=== PATIENT | male | born 2000 | race Caucasian/White ===

== ENCOUNTER 2025-05-06 17:59 | Inpatient (IN) | payer SELFPAY ==
[2025-05-06 18:24] VITALS: BP 113/57; PULSE 56; RESP 18; TEMP 36.4; O2SAT 96; BMI 36.7
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
--- OUTSIDE RECORDS SUMMARY | 2025-05-06 20:23 | XMS_ITS | Clinical Summary ---
Author Organization [facility] Address [address] [id number] Care Team Providers Care Vice President Safety Name Role Phone Crista Rivas NP Primary Care Provider [phone] Allergies No known active allergies Medications * This document contains information received from the source organization and may not represent a complete record from that organization. No known medications Active Problems Problem Noted Date Diagnosed Date Scoliosis 11/27/2013 Family History Medical History Relation Name Comments Other Father Family History of arthritis /Family History of hypoglycemia /Family History of spinal stenosis Other Mother Family History of hypoglycemia /Family History of anemia Relation Name Status Comments Father Mother Social History Tobacco Use Types Packs/Day Years Used Date Smoking Tobacco: Never Smokeless Tobacco: Never Comments:: Alcohol Use Standard Drinks/Week Comments Not Currently 0 (1 standard drink = 0.6 oz pur e alcohol) Sex and Gender Information Value Date Recorded Sex Assigned at Male 08/22/2024 8:15 AM EST Legal Sex Male 11:18 PM EDT Gender Identity Not on file Sexual Orientation Not on file Last Filed Vital Signs Vital Sign Reading Time Taken Comments Blood Pressure 108/70 05/06/2025 4:04 PM EDT Pulse 68 05/06/2025 4:04 PM EDT Temperature 36.6 C (97.9 F) 05/06/2025 4:04 PM EDT Respiratory Rate 16 05/06/2025 4:04 PM EDT Oxygen Saturation 99% 05/06/2025 4:04 PM EDT Inhaled Oxygen Concentration - - Weight 142.4 kg (314 lb) 10/15/2014 11:26 AM EDT Height 178.3 cm (5' 10.2 ) 10/15/2014 11:26 AM E DT Body Mass Index 44.8 10/15/2014 11:26 AM EDT Plan of Treatment Health Maintenance Due Date Last Done Comments HIV Screening 2000 Hepatitis C Screening 2000 Hepatitis B Vaccines (3 of 3 - 3-dose series) 05/10/2001 03/15/2001, 2000, 2000 Varicella Vaccines (2 of 2 - 2-dose childhood series) 2004 05/18/2001 Alcohol/Substance Use Screening 07/10/2024 Depression Screening and Follow-Up 07/10/2024 Oral Health Screening 07/10/2024 COVID-19 Vaccine ( - season) 2025 Influenza Vaccine (#1) 2025 9, 08/08/2018, 06/14/2017, Additional history exists DTaP,Tdap,and Td Vaccines (8 - Td or Tdap) 04/07/2030 04/07/2020, 04/25/2013, 05/17/2005, Additional history exists RSV Vaccine (60+ years old and patients) (1 - 1-dose 75+ series) 2075 Pneumococcal Vaccine: Pediatric (0-5 Years) and At-Risk Patients (6-50 Years) Aged Out 2000, 2000 No longer eligibl e based on patient's age to complete this topic HPV Vaccines Completed 09/01/2016, 04/09, 11/04/2015 Procedures * Due to [place] state law, this organization might not be sharing negative HIV tests. Procedure Name Priority Date/Time Associated Diagnosis Comments CT HEAD WO CONTRAST STAT 05/04/2025 1 1:59 PM EDT ECG 12-LEAD STAT 05/04/2025 10:34 PM EDT DRUGS OF ABUSE SCREEN, URINE (AMPH,HERSON,OMID,BUP,C OC,FENT,AMRIT,METH,OPS ,OXY) STAT 05/04/2025 10:22 PM EDT TSH REFLEX FREE T4 STAT 05/04/2025 10 :22 PM EDT UA/CULTURE REFLEX Routine 05/04/2025 10: 22 PM EDT RAPID COVID-19 RNA FOR SURVEILLANCE (ED ONLY) STAT 05/04/2025 10:22 PM EDT URINALYSIS W/REFLEX TO MICROSCOPIC & CULTURE Routine 05/04/2025 10:22 PM EDT BASIC METABOLIC PANEL STAT 05/04/2025 10:22 PM EDT CBC AUTO DIFFERENTIAL STAT 05/04/2025 10:22 PM EDT URINE CULTURE, ROUTINE Routine 05/04/2025 10:22 PM EDT from Last 3 Months Results * Due to [place] state law, this organization might not be sharing negative HIV tests. * CT Head WO Contrast (05/04/2025 11:59 PM EDT) Anatomical Region Laterality Modality Head and Neck Computed Tomogra phy 05/05/2025 12:0 0 AM EDT Impressions 05/05/2025 12:19 AM EDT No acute intracranial abnormality. If this radiology report contains a blank impression section, it is an incomplete radiology report. Please contact the interpreting radiologist or applicable radiology division as soon as possible to obtain the completed interpretation. Workstation ID: [id number] Narrative 05/05/2025 12:19 AM EDT COMPARISON: None. FINDINGS: There is no shift of midline structures. The ventricles, cisterns and other CSF containing spaces are normal in size, shape and position. The brain parenchyma demonstrates normal contour and density with preservation of the mcclellan-white differentiation. There are no focal mass lesions or abnormal intra or extra- axial fluid collections. The paranasal sinuses and mastoid air cells are well developed and well-aerated without focal mass lesion or air-fluid levels. Resulting Agency Comment [id number] Procedure Note Santy Beck MD - 05/05/2025 COMPARISON: None. FINDINGS: There is no shift of midline structures. The ventricles, cisterns andother CSF containing spaces are normal in size, shape and position. Thebrain parenchyma demonstrates normal contour and density with preservationof the mcclellan-white differentiation. There are no focal mass lesions orabnormal intra or extra-axial fluid collections. The paranasal sinuses and mastoid air cells are well developed andwell-aerated without focal mass lesion or air-fluid levels. IMPRESSION: No acute intracranial abnormality. If this radiology report contains a blank impression section, it is anincomplete radiology report. Please contact the interpreting radiologistor applicable radiology division as soon as possible to obtain thecompleted interpretation. Workstation ID: [id number] Saad Redman MD IMG CT PROCEDURES Final Result * ECG 12 lead (05/04/2025 10:34 PM EDT) Ventricular Rate EKG 61 BPM MUSE EKG Atrial Rate 61 BPM MUSE EKG CO Interval 134 ms MUSE EKG QRS Interval 88 ms MUSE EKG QT Interval 418 ms MUSE EKG QTC Interval 420 ms MUSE EKG P [place] 5 degrees MUSE EKG R [place] 13 degrees MUSE EKG T Wave [place] 26 degrees MUSE EKG 05/04/2025 10:3 4 PM EDT 05/05/2025 8:32 AM EDT Impressions MUSE EKG - 05/05/2025 8:32 AM EDT Normal sinus rhythm Artifact No previous ECGs available Confirmed by Radhika Harding ([id number]) on 05/05/2025 8:32:16 AM Narrative Procedure Note Radhika Harding DO - 05/05/2025 IMPRESSION: Normal sinus rhythm Artifact No previous ECGs available Confirmed by Radhika Harding ([id number]) on 05/05/2025 8:32:16 AM Saad Redman MD ECG ORDERABLES Final Result MUSE EKG * Drugs of Abuse Screen, Urine (05/04/2025 10:22 PM EDT) Amphetamine Screen, Urine Negative Negative 05/05/2025 12:[facility]: Detection limit of 1000 ng/mL of d-Methamphetamine. Drug results are to be used only for medical purposes. Unconfirmed screening results must not be used for non-medical purposes. Barbiturate Screen, Urine Negative Negative 05/05/2025 12:36 AM EDT [facility] Comment: Detection limit of 200 ng/mL of Secobarbital. Drug results are to be used only for medical purposes. Unconfirmed screening results must not be used for non-medical purposes. Benzodiazepine Screen, Urine Negative Negative 05/05/2025 12:36 AM EDT [facility] Comment: Detection limit of 200 ng/mL of Nordiazepam. Drug results are to be used only for medical purposes. Unconfirmed screening results must not be used for non-medical purposes. Buprenorphine Screen, Urine Negative Negative 05/05/2025 12:36 AM T [facility] Comment: Detection limit of 10 ng/mL of norbuprenorphine. Drug results are to be used only for medical purposes. Unconfirmed screening results must not be used for non-medical purposes. Cocaine Metabolite Screen, Urine Negative Negative 05/05/2025 12:36 AM T [facility] Comment: Detection limit of 300 ng/mL of Benzoylecgonine. Drug results are to be used only for medical purposes. Unconfirmed screening results must not be used for non-medical purposes. Marijuana Screen, Urine Negative Negative 05/05/2025 12:36 AM EDT [facility] Comment: Detection limit of 50 ng/mL of 35-Ptv-mpywt-3-JJY-7-carboxylic acid. Drug results are to be used only for medical purposes. Unconfirmed screening results must not be used for non-medical purposes. Methadone Metabolite Screen, Urine Negative Negative 05/05/2025 12:36 AM T [facility] Comment: Detection limit of 300 ng/mL of Methadone. Drug results are to be used only for medical purposes. Unconfirmed screening results must not be used for non-medical purposes. Oxycodone Screen, Urine Negative Negative 05/05/2025 12:36 AM EDT [facility] Comment: Detection limit of 100 ng/mL of Oxycodone. Drug results are to be used only for medical purposes. Unconfirmed screening results must not be used for non-medical purposes. Opiate Screen, Urine Negative Negative 05/05/2025 12:36 AM EDT [facility] Comment: Detection limit of 300 ng/mL of Morphine. Drug results are to be used only for medical purposes. Unconfirmed screening results must not be used for non-medical purposes. Fentanyl Screen, Urine Negative Negative 05/05/2025 12:36 AM EDT [facility] Comment: Detection limit of 5 ng/mL of norfentanyl. Drug results are to be used only for medical purposes. Unconfirmed screening results must not be used for non-medical purposes. Urine Urine specimen collection, clean catch / Unknown Non-Blood Collection / Unknown 05/04/2025 10:22 PM EDT 05/04/2025 10:28 PM EDT us Saad Redman MD LAB URINE ORDERABLES Final Resul t [facility] [address] [place] [address], * Rapid COVID-19 for Surveillance - Psych/Admission (05/04/2025 10:22 PM EDT) [facility] PCR, SARS CoV-2 RNA Not Detected Not Detected CEPHEID GENEXPERT 05/04/2025 11:04 PM EDT [facility] Comment:A Not Detected (Nega tive) test result is indicative of the absence of SARS-CoV-2 RNA at the level of LoD (Limit of Detection). A negative result does not rule out the possibility of COVID-19 and should not be used as the sole basis for treatment or patient management decisions. If COVID-19 is still suspected, based on exposure history together with other clinical findings, re-testing should be considered. Swab Specimen from nasopharyngeal structure / Unknown Non-Blood Collection / Unknown 05/04/2025 10:22 PM EDT 05/04/2025 10:28 PM EDT Narrative [facility] - 05/04/2025 11:04 PM EDT This test was developed, validated and its performance characteristics determined by [facility]. This test has not been cleared or approved by the U.S. Food and Drug Administration (FDA). FDA Policy for Diagnostic Tests for Coronavirus Disease-2019 during the Public Health Emergency issued September 23, 2019, is followed. us Saad Redman MD LAB BODY FLUIDS AND STOOLS ORDER DESTINY Final Result [facility] [address] [place] [address], [place] * (ABNORMAL) Urinalysis W/Reflex to Microscopic & Culture (05/04/2025 10:22 PM EDT) Color, Urine Light Yellow Colorless, Light Yellow, Yellow, Dark Yellow 05/04/2025 10:43 PM EDT [facility] Clarity, Urine Clear Clear 05/04/2025 10:43 PM EDT [facility] Specific [place], Urine 1.005 <1.030 05/04/2025 10:43 PM EDT [facility] pH, Urine 6.5 5.0 - 8.0 05/04/2025 10:43 PM EDT [facility] Protein, Urine Negative Negative 05/04/2025 10:43 PM EDT [facility] Glucose, Urine Negative Negative 05/04/2025 10:43 PM EDT [facility] Ketones, Urine Negative Negative 05/04/2025 10:43 PM EDT [facility] Bilirubin, Urine Negative Negative 05/04/2025 10:43 PM EDT [facility] Blood, Urine Negative Negative 05/04/2025 10:43 PM EDT [facility] Nitrite, Urine Negative Negative 05/04/2025 10:43 PM EDT [facility] Urobilinogen, Urine Normal Normal 05/04/2025 10:43 PM EDT [facility] Leukocyte Esterase, Urine Trace(A) Negative 05/04/2025 10:43 PM EDT [facility] WBC, Urine 2 0 - 2 /HPF 05/04/2025 10:43 PM EDT [facility] RBC, Urine 1 0 - 2 /HPF 05/04/2025 10:43 PM EDT [facility] Hyaline Casts, Urine 0 0 - 2 /LPF 05/04/2025 10:43 PM EDT [facility] Squamous Epithelial Cells, Urine <1 /HPF 05/04/2025 10:43 PM EDT [facility] Bacteria, Urine None Seen None /HPF /HPF 05/04/2025 10:43 PM EDT [facility] Urine Urine specimen collection, clean catch / Unknown Non-Blood Collection / Unknown 05/04/2025 10:22 PM EDT 05/04/2025 10:28 PM EDT [facility] - 05/04/2025 10:43 PM EDT Some urinalysis results will not meet the criteria for reflex urine culture although certain urine values may be abnormal. Additional testing can be ordered by the provider if clinically warranted. us Saad Redman MD LAB URINE ORDERABLES Final Resul t Performing Organization Address City/[facility]/ZIP Co de Phone Number [facility] [address] [place] [address], [place] * TSH Reflex Free T4 (05/04/2025 10:22 PM EDT) TSH 0.630 0.280 - 3.890 uIU/mL 05/04/2025 11:09 PM EDT [facility] Blood Structure of peripheral vein / Unknown Venipuncture / Unknown 05/04/2025 10:22 PM EDT 05/04/2025 10:30 PM EDT us Saad Redman MD LAB BLOOD ORDERABLES Final Resul t Performing Organization Address [facility]/ZIP Co de Phone Number [facility] [address] [place] [address], [place] * (ABNORMAL) CBC Auto Differential (05/04/2025 10:22 PM EDT) WBC 8.8 3.8 - 10.8 10*3/uL 05/04/2025 10:53 PM EDT [facility] RBC 4.52 4.20 - 5.80 10*6/uL 05/04/2025 10:53 PM EDT [facility] Hemoglobin 13.6 13.2 - 17.1 g/dL 05/04/2025 10:53 PM EDT [facility] Hematocrit 38.4(L) 38.5 - 50.0 % 05/04/2025 10:53 PM EDT [facility] MCV 85.0 80.0 - 100.0 fL 05/04/2025 10:53 PM EDT [facility] MCH 30.1 27.0 - 33.0 pg 05/04/2025 10:53 PM EDT [facility] MCHC 35.4 32.0 - 36.0 g/dL 05/04/2025 10:53 PM EDT [facility] RDW 12.3 11.0 - 15.0 % 05/04/2025 10:53 PM EDT [facility] Platelets 258 140 - 400 10*3/uL 05/04/2025 10:53 PM EDT [facility] MPV 10.6 7.5 - 12.5 fL 05/04/2025 10:53 PM EDT [facility] Neutrophil % 72.1 % 05/04/2025 10:53 PM EDT [facility] Immature Grans % 0.3 0.0 - 0.9 % 05/04/2025 10:53 PM EDT [facility] Lymphocyte % 21.7 % 05/04/2025 10:53 PM EDT [facility] Monocyte % 5.1 % 05/04/2025 10:53 PM EDT [facility] Eosinophil % 0.3 % 05/04/2025 10:53 PM EDT [facility] Basophil % 0.5 % 05/04/2025 10:53 PM EDT [facility] Neutrophil # 6.31 1.50 - 7.80 10*3/uL 05/04/2025 10:53 PM EDT [facility] Immature Grans # 0.03 <=0.03 10*3/uL 05/04/2025 10:53 PM EDT [facility] Lymphocyte # 1.90 0.85 - 3.90 10*3/uL 05/04/2025 10:53 PM EDT [facility] Monocyte # 0.50 0.20 - 0.95 10*3/uL 05/04/2025 10:53 PM EDT [facility] Eosinophil # <0.03 0.02 - 0.50 10*3/uL 05/04/2025 10:53 PM EDT [facility] Basophil # <0.03 0.00 - 0.20 10*3/uL 05/04/2025 10:53 PM EDT [facility] nRBC % 0.0 /100 WBCs 05/04/2025 10:53 PM EDT [facility] nRBC # <0.01 <0.01 10*3/uL 05/04/2025 10:53 PM EDT [facility] Blood Structure of peripheral vein / Unknown Venipuncture / Unknown 05/04/2025 10:22 PM EDT 05/04/2025 10:30 PM EDT us Saad Redman MD LAB BLOOD ORDERABLES Final Resul t [facility] [address] [place] [address], * Urine Culture, Routine (05/04/2025 10:22 PM EDT) Urine Culture Workup No growth after 24 hours [facility] 05/06/2025 12:28 PM EDT [facility] Urine Urine specimen collection, clean catch / Unknown Non-Blood Collection / Unknown 05/04/2025 10:22 PM EDT 05/04/2025 10:43 PM EDT us Saad Redman MD LAB MICROBIOLOGY - GENERAL ORDER DESTINY Final Result [facility] [address] [place] [address], * BMP - Basic Metabolic Panel (05/04/2025 10:22 PM EDT) NA 140 135 - 145 mmol/L 05/04/2025 11:09 PM EDT [facility] K 4.6 3.5 - 5.3 mmol/L 05/04/2025 11:09 PM EDT [facility] Cl 105 97 - 110 mmol/L 05/04/2025 11:09 PM EDT [facility] CO2 25 22 - 32 mmol/L 05/04/2025 11:09 PM EDT [facility] BUN 9 7 - 23 mg/dL 05/04/2025 11:09 PM EDT [facility] Creatinine 1.03 0.60 - 1.30 mg/dL 05/04/2025 11:09 PM EDT [facility] Glucose 82 65 - 99 mg/dL 05/04/2025 11:09 PM EDT [facility] Calcium 9.3 8.6 - 10.5 mg/dL 05/04/2025 11:09 PM EDT [facility] Anion Gap 10 5 - 15 05/04/2025 11:09 PM EDT [facility] eGFR >90 >=60 mL/min/1. 73m2 05/04/2025 11:09 PM EDT [facility] Comment:The estimated glomer ular filtration rate (eGFR) is calculated using a new formula developed by the NKF-ASN task force to eliminate race-based correction factors. The new formula uses serum/plasma creatinine, age, and gender to determine eGFR. A value below 60mls/min might indicate kidney disease and will be flagged. For additional information, see Yanna et al, Am J Kidney Dis. 2021;79(2):268- 288, A Unifying Approach for GFR estimation: Recommendations of the NKF-ASN Task Force on Reassessing the Inclusion of Race in Diagnosing Kidney Disease . Blood Structure of peripheral vein / Unknown Venipuncture / Unknown 05/04/2025 10:22 PM EDT 05/04/2025 10:30 PM EDT us Saad Redman MD LAB BLOOD ORDERABLES Final Resul t [facility] [address] [address], from Last 3 Months Care Teams Vice President Safety Relationship Specialty Start Date End Date Crista Rivas NP [address] [place] [id number] PCP - General Family Medicine 08/22/24
--- OUTSIDE RECORDS SUMMARY | 2025-05-06 20:24 | XMS_ITS | Data Portability ---
Author Organization [facility] Address [address] [place] [address] Care Team Providers Care Non Morse Intercept Technician Name Role Phone BRUCE VILLARREAL Primary Care Provider TOÑO SALGADO OTHER Assessment No assessment recorded. Plan of Treatment Reminders Order Date Submit Date Provider Last Modified By Organization Details Last Modified Time Details Appointments None recorded. Lab None recorded. Referral None recorded. Procedures None recorded. Surgeries None recorded. Imaging None recorded. Medication Orders Flonase Allergy Relief 50 mcg/actuat ion nasal spray,susp ension 2018 019 INTERFACE [id number], [address] [place], [address], 9 18:53:46 Sudafed 12 Hour 120 mg tablet,ext ended release 2018 019 INTERFACE [id number], [address] [place], [address], 9 18:53:45 Sudafed 30 mg tablet 2018 019 Not available 9 08:55:17 ibuprofen 200 mg tablet 2018 019 Not available 9 08:55:17 prednisone 10 mg tablet 2016 017 [id number], [address] [place], [address], 9 08:33:44 sodium fluoride 0.2 % dental solution 2016 017 Not available 9 08:34:07 Mucinex DM 30 mg-600 mg tablet,ext ended release 12 hr 2016 017 Not available 9 08:34:11 ibuprofen 200 mg tablet 2016 017 Not available 9 08:34:02 Patient TargetsNo targets recorded. Patient Instructions Encounter Date Encounter Id Patient Instructions Last Modified By Organization Details Last Modified Time 08/17/2016 [id number] Mucinex DM 1 tab given in the office, cont q12 hr prn for lung congestion. Ibuprofen 400mg given in the office, cont q4 hr prn for pain. Increase rest and fluids, saline nasal sprays, salt H2O gargles for throat. Encouraged decrease marijuana use. f/u if sx's change, worsen or persist Not available 08/17/2016 11:04:41 Returned to class Not availabl e 08/17/2016 11:03:21 11/17/2016 [id number] Refrain from eat ing sticky foods such as gum or candy for the rest of today May eat and drink immediately following the application Varnish will remain on teeth till you brush tonight Recommended tooth paste for sensitive teeth, avoid trigger foods such as sugar and gum and disclose problem at next dental visit if sensivity persists Not available 11/17/2016 10:11:12 Dispostion: Retu rn to class. f/u prn Not available 11/17/2016 10:11:20 07/25/2018 [id number] Sudafed 60mg giv en in the office, cont q6 hr prn for cough. Ibuprofen 400mg given in the office, cont q6 hr prn for pain/fever. Increase rest and fluids, saline nasal sprays/netti pot, salt H2O gargles. f/u if sx's change, worsen or persist. Not available 07/25/2018 08:50:44 Returned to class Not availabl e 07/25/2018 08:49:47 06/24/2019 [id number] viral respirator y infection: care instructions [email or web address] Not available 06/24/2019 19:04:39 Please return to the clinic or follow up with your PCP if symptoms has not improve or worsens in 5-7 days. [email or web address] Not available 06/24/2019 19:04:23 You have had an Urgent Care Visit which is designed to address acute issues. It does not represent an exhaustive evaluation of your symptom complex, but is an attempt to treat and manage the most likely cause of your most pressing physical issues. If you are not improved in the time frame that we have discussed, please seek the advice of your PCP who is in a position to order further diagnostic testing and possible specialist consultation. If you are rapidly deteriorating despite the treatment recommendations please do not wait to see your PCP and do proceed to the closest ER where a comprehensive evaluation including consideration to lab and other diagnostic testing as well as consultation is more expeditiously accessible. If you were prescribed medications they have been directly submitted to your pharmacy on file. Please make sure you finish all your medications and if you develop major side effects related to them please do stop taking them and check with your PCP to see if you need to get an alternative medication. If labs or xray were ordered, we will call you with the results if there is any change to your plan of care. [email or web address] Not available 06/24/2019 19:04:39 Reason for Referral None Reported. Problems Name Problem SNOMED Code Status Onset Date Resolution Date Notes Provider Name and Address Organization Details Recorded Time Acute sinusitis 04979148 Active GEORGE Monroe, FINISH SPECIALIST [address] [place], [address] , [facility] 13:35:33 Problem Notes None recorded. Procedures Surgical History Date Name Laterality Status Provider Name and Address Organization Details Recorded Time 05/09/2016 GEORGE Segal, FINISH SPECIALIST [address] [place], [address], [facility] 05/09/2016 10:26:16 05/09/2016 WINDY Dobbins) GEORGE Almodovar, FINISH SPECIALIST [address] [place], [address], [facility] 05/09/2016 10:26:11 11/20/2015 GEORGE Segal, FINISH SPECIALIST [address] [facility], [address], [facility] 11/20/2015 10:59:31 11/20/2015 WINDY WebbAshley) completed GEORGE Monroe, FINISH SPECIALIST [address] [facility] [place], [address], [facility] 11/20/2015 10:59:31 06/11/2013 MYA completed GEORGE Monroe, [facility] [address] [facility] [place], [address], [facility] 06/11/2013 09:51:21 06/11/2013 WINDY WebbAshley) completed GEORGE Monroe, [facility] [address] [facility] [place], [address], [facility] 06/11/2013 09:51:21 Imaging Results None recorded. Procedure Notes None recorded. Medical Equipment None Reported. Allergies No known drug allergies Medications Name Sig Start Date Stop Date Status Note LastModified by Organization Details LastModified Time amoxicillin 500 mg capsule Take 1 capsule 3 times a day by oral route as directed for 10 days. 05/09 completed Not Available Not Available Not Available prednisone 10 mg tablet Take 5 tabs daily x 2 days, then 4 tabs daily x 2 days, then 3 tabs daily x 2 days, then 2 tabs daily x 2 days, then 1 tab daily x 2 days 07/25 completed Not Available Not Available Not Available azithromyci n 250 mg tablet 07/25 completed Not Available Not Available Not Available ibuprofen 800 mg tablet 07/25 completed Not Available Not Available Not Available ondansetron HCl 8 mg tablet active Not Available Not Available Not Available prednisone 20 mg tablet 05/09 completed Not Available Not Available Not Available clindamycin HCl 150 mg capsule 05/09 completed Not Available Not Available Not Available Adderall XR 30 mg capsule,ext ended release active Not Available Not Available Not Available diazepam 2 mg tablet 05/09 completed Not Available Not Available Not Available sodium fluoride 0.2 % dental solution Take 0.5 mL every 3 months by dental route as needed for 1 day. 07/25 completed Not Available Not Available Not Available ibuprofen 200 mg tablet Take 2 tablets every 6 hours by oral route as needed. 2018 active Not Available Not Available Not Avai lable lidocaine HCl 2 % mucosal solution 05/09 completed Not Available Not Available Not Available ipratropium bromide 42 mcg (0.06 %) nasal spray active Not Available Not Available Not Available ondansetron 4 mg disintegrat ing tablet 05/09 completed Not Available Not Available Not Available fluticasone propionate 50 mcg/actuati on nasal spray,suspe nsion [place] 1 spray twice a day by intranasa l route. active Not Available Not Available No t Available Sudafed 30 mg tablet Take 2 tablets every 6 hours by oral route as needed. 2018 active Not Available Not Available Not Avai lable Mucinex DM 30 mg-600 mg tablet,exte nded release 12 hr Take 1 tablet every 12 hours by oral route as needed. 07/25 completed Not Available Not Available Not Available 12 Hour Decongestan t ER 120 mg tablet,exte nded release Take 1 tablet every 12 hours by oral route for 5 days. active Not Available Not Available No t Available Vitals Date Recorded Body temperature Provider Name a nd Address Organization Details Last Updated DateTime 07/25/2018 97.6 [degF] Annemarie Guardado, GEORGE, FINISH SPECIALIST [address] [place], [address], [facility] 07/25/2018 08:35:45 Date Recorded Body temperature Provider Name a nd Address Organization Details Last Updated DateTime 08/17/2016 98.4 [degF] GEORGE Monroe, FINISH SPECIALIST [address] [place], [address], [facility] 08/17/2016 10:46:12 Date Recorded Body weight Body temperature Oxygen saturation Oxygen saturation in Arterial blood by Pulse oximetry Heart rate Provider Name and Address Organization Details Last Updated DateTime 7 209391. 19 g 97 [degF] 98 % 98 % 55 /min Alexandra Mcmanus RN [facility] 7 11:41:22 Date Recorded Body weight Body temperature Oxygen saturation Oxygen saturation in Arterial blood by Pulse oximetry Heart rate Systolic And Diastolic Provider Name and Address Organization Details Last Updated DateTime 9 980249. 18 g 97.7 [degF] 99 % 99 % 89 /min 130/86 mm[Hg] MERI Suarez [facility] 9 18:32:49 Social History Question Answer Notes LastModified by Organizat ion Details LastModified Time Tobacco Smoking Status Current Every Day Smoker Juuls one pod per day GEORGE Monroe, FINISH SPECIALIST [address] [place], [address], [facility] 07/25/2018 08:43:15 Alcohol Use Drinks Alcohol Socially Sporadic Use Information not available 11/20/2015 Illicit Drugs Yes Information not available 11/20/2015 What Was The Date Of Your Most Recent Tobacco Screening? 07/25/2018 Information not available 01/31/2019 Are You Sexually Active? No Information not available 11/20/2015 Sex: Unknown Functional Status None recorded. Mental Status None recorded. Family History Nothing Reported. Medical History Condition Response bladder / kidney infection(s) N asthma N glaucoma N use of alcohol or drugs? N ADD N pneumonia N nasal allergies N frequent headaches/migraines N problems with eyes/vision N diabetes N heart problems, murmurs N problems with ears/hearing N bronchitis N frequent abdominal pain N serious illness or medical conditions N frequent ear infections N ADHD N other N chickenpox N anxiety disorder N thyroid disease or other endocrine probl ems N constipation N cancer N arthritis N hospitalizations N depression N PTSD N anemia or bleeding problems N anesthesia allergy/complications N serious injuries or accidents N chronic or recurrent skin problems (acne /eczema) N convulsions or other neurological proble ms N blood transfusion(s) N Past Encounters Encounter ID Performer Location Encounter Start Date Encounter Closed Date Diagnosis/Indication Diagnosis SNOMED-CT Code Diagnosis ICD10 Code Diagnosis IMO Codes Diagnosis Note [id number] GEORGE Monroe, FINISH SPECIALIST [address] [address] 06/11/2013 09:45:20 06/11/2013 10:23:33 Dental fluoride treatment 32911969 Flouride varnish applied to surface area of all teeth. Patient tolerated applicatio n well. Instructed to not brush teeth until tomorow morning.Wr itten instructio ns given to student for their parent [id number] GEORGE Monroe, [address] [address] 09/11/2013 13:43:13 09/12/2013 10:52:26 Dental fluoride treatment 60319687 Flouride varnish applied to surface area of all teeth. Patient tolerated applicatio n well. Instructio ns reviewed with student [id number] GEORGE Monroe, [address] [address] 12/16/2013 09:40:42 12/16/2013 09:48:06 Dental fluoride treatment 94665142 Flouride varnish applied to surface area of all teeth. Patient tolerated applicatio n well. Instructio ns reviewed with student [id number] GEORGE Monroe, [address] [address] 11/20/2015 10:56:40 11/20/2015 13:36:18 Acute sinusitis 11491210 J01.10 Amox 500mg tid x 10 days, med use and side effects reviewed. Increase rest and fluids, saline nasal sprays, sudafed 60mg q6 hr prn for congestion , motrin 400mg q6 hr prn for pain. School nurse spoke with Dad on the phone re: exam findings and plan of care. Dismissed home, f/u if no improvemen t. [id number] GEORGE Monroe, [address] [address] 05/09/2016 09:04:25 05/09/2016 10:28:57 Dental fluoride treatment 67573632 Z91.89 Fluoride varnish instructio ns reviewed with student. Flouride varnish applied to surface area of all teeth. Patient tolerated applicatio n well. [id number] GEORGE Monroe, [address] [address] 08/12/2016 08:59:12 08/12/2016 09:06:20 Dental fluoride treatment 01512158 Z91.89 Fluoride varnish instructio ns reviwed with student. Flouride varnish applied to surface area of all teeth. Patient tolerated applicatio n well. [id number] GEORGE Monroe, [address] [address] 08/17/2016 10:43:31 08/17/2016 11:06:08 Upper respiratory infection 81999989 J06.9 [id number] GEORGE Monroe, [address] [address] 11/17/2016 10:00:54 11/17/2016 10:13:13 Dental fluoride treatment 19459402 Z91.89 Fluoride varnish instructio ns reviewed with student. Flouride varnish applied to surface area of all teeth. Patient tolerated applicatio n well. [id number] Mohini House PA-C [facility] [address] [place] [address] 04/18/2017 11:36:45 04/18/2017 12:20:03 Contact dermatitis due to plants, except food 59954648 L25.5 Recent exposure to poison barbara. Will treat with medication as below. Recommend pt washes all exposed clothing and sheets in hot soapy water. Pt to avoid scratching area to prevent developmen t of secondary bacterial infection. Pt to follow-up in 3-5 days if symptoms are not improving or have worsened. [id number] GEORGE Monroe, [address] [address] 07/25/2018 08:31:09 07/25/2018 08:54:07 Nasopharyngitis 42550342 J00 [id number] Moses Regan NP, Jadon [facility] [address] [place] [address] 06/24/2019 18:22:16 06/24/2019 18:48:36 Viral respiratory infection 913039689 J06.9 Patient is a 19 y.o. male who presented here today with sinus congestion s and ear pain for the past 2 days. ON exam, no sinus tenderness or pressure noted, LS clear. Throat and TMs WNL His symptoms is more likely viral in etiology. Discussed treatment below. Also advised to do the following home remedies to hasten its recovery. - Drink lots of fluids, whatever you like except for alcoholic beverages. - Run a cool-mist humidifier in your room at night. - For sore throat, gargle warm salt water. - Get extra rest and do not over-exert yourself. -Return to see your doctor if not improving in 5-7 days. Health Concerns Section Related Observation LastModified by Organization Detai ls LastModified Time None Recorded Concern Status LastModified by Organization Details LastModified Time None Recorded Advance Directives Directive None Recorded Payers Insurance Date Sequence Insurance Name Policy Number Policy Hunt Covered Member ID Hunt Member ID Guarantor Name 09/06/2024 1 [place] : [facility] Dale Ji [id number] Dale Ji 09/06/2024 1 [facility] [employer] - TO[employer] (MEDICAID HMO) [id number] Dale Ji [id number] Dale Ji Notes Date Note Type Note Provider Name and Address Organization Details Recorded Time 7 text/html Upper Respiratory SymptomsReported by Patientupper respiratory symptomsFor quality, patient reportsproductive cough. For associated symptoms, patient reportssore throatbut reportsno feverandno nausea. For location, patient reportschestandthroat. For severity, patient reportsmoderate. For context, patient reportssick contact (classmates)andsmoker (marijuana socially). For modifying factors, patient reportsotc medication (ibuprofen yesterday with good effect). For duration, (3 days). GEORGE Monroe, CARMEN [address] [place], [address], [facility] 08/17/2016 11:06:03 7 text/html Generic HPI TemplateReported by PatientHPIFor location, (here for fluoride varnish). For quality, (teeth in good repair). For context, (sees a dentist for regular cleanings. has had varnish before. denies any problems with previous fluoride application). For associated symptoms, (tooth sensitivity when eating hard candy and sugar in left upper molar area).Fluoride consent by Mom on [facility] enrollment form GEORGE Monroe, FINISH SPECIALIST [address] [facility] [place] [address], [facility] 11/17/2016 10:12:25 7 text/html RashReported by PatientHPIFor quality, patient reportsitchy,red, andmultiple. For location, patient reportsarms. For severity, patient reportsmoderate. For duration, patient reportshas noted for <1 week. For onset/timing, patient reportsabrupt onset. For context, patient reportsno new detergents or skin productsandno one else with similar rash. For aggravating factors, patient reportsnothing makes it worse. For associated symptoms, patient reportsno fever,no cold symptoms,no nausea,no vomiting,no diarrhea, andno urinary symptoms.ROS as noted in the HPI pt presents today with poison barbara or poison oak on his left arm and side. this started monday night and is very itchy. CS Mickey Sun III, MD [address] [place], [address], [facility] 04/30/2017 13:54:17 9 text/html Upper Respiratory SymptomsReported by Patientupper respiratory symptomsFor quality, patient reportshurts to swallow(stuffy/runny nose, post nasal drip). For associated symptoms, patient reportsnauseabut reportsno fever. For location, patient reportsheadandthroat. For severity, patient reportspain level 3/10. For modifying factors, patient reportsotc medication (tylenol with minimal relief). For duration, (2 - 3 days). Annemarie Guardado, MSN, FINISH SPECIALIST [address] [place], [address], [facility] 07/25/2018 08:54:02 9 text/html Sinusitis/AllergyReported by PatientHPIFor associated symptoms, patient reportsnasal discharge from both nostrils,headache forehead,facial pain bilaterally,sinus pain forehead,nasal discharge,nasal passage blockage bilaterally, andpain behind the eyes both. For quality, patient reportscongested. For severity, patient reportsinterference with workandfrequent breathing through the mouth. For context, patient reportsrecent upper respiratory infection. For location, patient reportsmaxillaryandfrontal . For onset/timing, patient reportsinitially started 2days ago. For aggravating factors, patient reportsworse with certain sleeping positions. 19 y/o male presents today c/o stuffy nose, headache, fever and ear ache and sinus pressure. Mickey Sun III, MD [address] [place] [address], [address], [facility] 06/24/2019 19:09:09
[2025-05-07 08:00] VITALS: BP 121/57; PULSE 76; RESP 16; TEMP 36.4; O2SAT 97
--- NOTE | 2025-05-07 08:38 | HO.PM.IMCN ---
History of Present Illness Data of Consult Service Date: 05/07/25 Primary Care Provider: None Physician HPI Reason for consult: Medical consult 25-year-old male with past medical history of PTSD, auditory hallucinations and paranoid delusions presented to [place] ED on a section 12 after called the police from a gas station bathroom with auditory hallucinations. Patient has been taking Xanax Suboxone and Adderall that he is obtaining from his family members in purchasing from the street. Patient also notably per history has significant trauma history. He had a CT head with no acute abnormalities. EKG within normal limits. Notably his Tox screen negative. Electrolytes without imbalances or evidence of kidney or liver impairment. TSH within normal limits. WBC without anemia or leukocytosis. Urine without infection. On exam he denies any acute concerns, calm and cooperative. Review of Systems Review of Systems: Denies any shortness of breath, chest pain, palpitations, dizziness, lightheadedness, headaches, dysuria, abdominal pain or discomfort, nausea, vomiting or diarrhea. Denies chills, body aches, muscle aches, fatigue or weight loss. PMFSH Social History Household Members: Family Housing: House Do you presently have visiting nurse or other home services: No Patient Tobacco Use Status: Refuse Tobacco use screen Currently Displaying Signs/Symptoms of Drug Intoxication Withdrawal: No Advance Directives: No Advance Directives Information Provided: No Do you have thoughts of harming others: None Do you have a plan to hurt others: No Plan Nutrition Risks: No Nutritional Risk Poor oral hygiene: No Meds Allergies Allergy/AdvReac Type Severity Reaction Status Date / Time No Known Allergies Allergy Verified 05/06/25 18:13 Active Medications: Current Medications Acetaminophen (Acetaminophen 325 Mg Tablet) 650 mg PO Q6H PRN PRN Reason: Headache/Pain, Scale 1-10 Al Hydroxide/Mg Hydroxide (Magnesium Hydrox/Alum Hydrox 30 Ml Oral.Susp) 30 ml PO Q6H PRN PRN Reason: Heartburn/Nausea Hydroxyzine HCl (Hydroxyzine Hcl 25 Mg Tablet) 25 mg PO Q6H PRN PRN Reason: mild anxiety Lorazepam (Lorazepam 1 Mg Tablet) 1 mg PO Q2H PRN PRN Reason: CIWA 8-11 Lorazepam (Lorazepam 1 Mg Tablet) 2 mg PO Q2H PRN PRN Reason: CIWA 12-15 Magnesium Hydroxide (Milk Of Magnesia 30 Ml Oral.Susp) 30 ml PO DAILY PRN PRN Reason: Constipation Nicotine (Nicotine 21 Mg Patch.Td24) 21 mg TRANSDERMA DAILY PRN PRN Reason: nicotine craving Nicotine Polacrilex (Nicotine Polacrilex 2 Mg Gum) 2 mg BUCCAL Q2H PRN PRN Reason: Nicotine Cravings Olanzapine (Olanzapine 5 Mg Tablet) 5 mg PO BID PRN PRN Reason: agitation Last Admin: 05/06/25 20:24 Dose: 5 mg Thiamine HCl (Thiamine Hcl 100 Mg Tablet) 100 mg PO DAILY DIONISIO Trazodone HCl (Trazodone Hcl 50 Mg Tablet) 50 mg PO BEDTIME MRX1 PRN PRN Reason: Insomnia Physical Exam Vital Signs and Narrative: Vital Signs: Last Vital Signs Temp 97.6 F 05/07/25 08:00 Pulse 76 05/07/25 08:00 Resp 16 05/07/25 08:00 BP 121/57 L 05/07/25 08:00 Pulse Ox 97 05/07/25 08:00 O2 Del Method Room Air 05/07/25 08:00 BMI result Body Mass Index 36.7 Alert and oriented X3, clam and cooperative. Answers questions. Neuro: CN II-X11 intact, no deficits, visual acuity intact EYES: PERRLA, EOM intact ENT: Hearing intact, MMM Cardiac: S1 S2 RRR, No ectopy Pulmonary: lungs clear to auscultation, No increased WOB. Abdominal: BS active in all 4 quadrants, no guarding or tenderness MSK: Strength 5/5 upper and lower extremities : Deferred Extremities: No edema in lower extremities Psych: Mood stable, Quiet and cooperative. Skin: Warm and dry, Intact Assessment and Plan (1) Auditory hallucination: Status: Acute Plan 25-year-old male admitted to inpatient psych after presenting to the ED with auditory hallucinations. PTSD/auditory hallucinations/paranoid delusions Treatment per psychiatric team Thank you for allowing me to participate in the care of this patient. Will follow with you, please notify medical provider with any changes in condition or concerns.
--- NOTE | 2025-05-07 09:03 | HO.PSYADMNOT ---
HPI Date of Service: 05/07/25 Chief Complaint: Psychosis/paranoid Sources of Information: patient interviewed and crisis/core team assessment reviewed HPI Subjective Notes: Mcintosh Warning, Conditional Voluntary (Does not want to sign in) and Section 12B Narrative: seen at 1pm 05/07 Patient is a 25-year-old male with psychotic episode in 2017, opiate addiction in sustained remission who presents for psychotic symptoms. Patient reports that he is here because I was hearing shit..voices... and a little bit of moaning....later got into my car and heard noise again.. I thought someone might be in my car... He says he pulled over to call for help in the police brought him to the hospital. Patient denies auditory hallucinations now. Outside Collector referenced collateral information from his father and he agreed that he was having some worries that people might be after him in this has impaired his functioning in the community but he is not sure who and thinks maybe it is not true. Patient endorses little sleep for the past 2-3 days, saying he did not want to go to bed, partly because he was paranoid about being safe; however he denies any associated manic symptoms. Patient denies any drug or alcohol use. Collateral reports that patient has been paranoid increasingly over the past month which has impaired his functioning at home in the community Past Psychiatric History: No past psych admissions No hx of SA Psychotic episode: in 2017 patient had paranoid delusional thinking for few months after taking ecstasy, thinking the house and that he were possessed No hx of psych meds other than following which he buys on the street: adderall xl 30mg;took though [facility] and was prescribed until 2020 xanax 1-2mg a day Clonazepam 2mg a day Medical Evaluation Reviewed: Hospitalist Adán Pending [facility] Medical History (Updated 05/07/25 @ 17:19 by Jeremie Ruiz MD) Opioid use disorder Brief psychotic disorder Family History: grandmother: mental health issues cousin: TBI Social History: graduated Lives with parents 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 Substance History: Sober from alcohol and opiates since December 2022 Weaned himself off methadone about a year ago; now take Suboxone 1 mg a day (buys 8 mg strips cuts them into 07/17) Trauma History: childhood trauma Diagnostics Vital Signs (24Hr): Vital Signs - 24 hr 05/06/25 18:24 05/07/25 08:00 Temperature 97.6 F 97.6 F Pulse Rate 56 76 Respiratory Rate 18 16 Blood Pressure 113/57 L 121/57 L Pulse Oximetry 96 97 Oxygen Delivery Method Room Air Room Air BMI result Body Mass Index 36.7 Meds/Allergies Allergies Allergies Allergy/AdvReac Type Severity Reaction Status Date / Time No Known Allergies Allergy Verified 05/06/25 18:13 Mental Status Exam Mental Status Exam Narrative: Pt is alert and oriented; behavior is isolative, quiet, slow moving; cooperative and calm on approach; patient is not in distress; dressed in hospital attire with unkempt hair; mood is described as not myself and affect congruent, blunted; eye contact appropriate; Speech is latent, slowed and soft; psychomotor retardation present; thought process is organized and goal directed; Thought content is on trying to make sense of recent symptoms; some paranoid ideations; denies any SI/HI. Currently Denies AVH but says they were present prior to coming to the hospital. Patients insight and judgment impaired Assessment & Plan Assessment & Plan (1) Brief psychotic disorder: Status: Acute Code(s): F23 - Brief psychotic disorder (2) Opioid use disorder: Status: Acute Code(s): F11.90 - Opioid use, unspecified, uncomplicated Plan HPI: Patient is a 25-year-old male with psychotic episode in 2017, opiate addiction in sustained remission who presents for psychotic symptoms. Patient reports that he is here because I was hearing shit..voices... and a little bit of moaning....later got into my car and heard noise again.. I thought someone might be in my car... He says he pulled over to call for help in the police brought him to the hospital. Patient denies auditory hallucinations now. Outside Collector referenced collateral information from his father and he agreed that he was having some worries that people might be after him in this has impaired his functioning in the community but he is not sure who and thinks maybe it is not true. Patient endorses little sleep for the past 2-3 days, saying he did not want to go to bed, partly because he was paranoid about being safe; however he denies any associated manic symptoms. Patient denies any drug or alcohol use. Collateral reports that patient has been paranoid increasingly over the past month which has impaired his functioning at home in the community Formulation/clinical reasoning: Seems that patient has been having psychotic symptoms for few weeks, that the increased this past week. Patient is somewhat limited historian acknowledges that he feels a little confused and not quite himself. Patient had a psychotic episode for few months about 7 years ago after he took ecstasy but denies any other symptoms until now. Although AH is reportedly gone, patient does feel confused not himself. He hopes this will resolve on its own and does not want medications at this time. He gives permission to call his parents for collateral. -will diagnose with brief psychotic episode at this time but will be mindful of burgeoning schizophreniform Denies any drug or alcohol use and has been sober since 2022. Patient does use Suboxone, 1 mg a day which he buys on the street and says psychologically it helps him to remain sober; he also buys Adderall XL 30 mg which he used to be prescribed until 2020 and he lost his prescriber; and about 1-2 mg a day of Xanax and about 2 mg a day of clonazepam. Patient is very careful about whom he buys from, accompanying the person to the pharmacy and buying the pills directly after they were received. Patient denies abusing any these medications Plan: Twelve B Will continue patient on Suboxone 1 mg daily Will make available clonazepam 0.5 mg q.i.d. may need to be increase since patient takes more benzos on the street as needed Will hold off restarting Adderall so as not to aggravate psychotic symptoms Patient does not want to start antipsychotic medication at this time Will gather collateral Patient educated on: diagnosis, medication risk/benefits, substance abuse and therapeutic strategies Informed Consent: understands and further education needed Reason for continued inpatient stay Substantial Risk for: rapid decompensation Statement Statement: I have reviewed the history and physical and performed a pertinent examination on my patient. No changes have occurred unless specified. If the History and Physical was not performed prior to admission, the Hospitalist's service will be consulted for completing the admission physical. Time Spent With Patient Time: Total time managing care of this patient today ____ minutes.
--- NOTE | 2025-05-07 10:14 | PC.NURSE ---
Pt declines flu shot at this time.
[2025-05-07] MEDS: Buprenorphine/Naloxone 2/0.5mg FILM 0.5 FILM SUBLINGUAL (14:03)
[2025-05-07 20:00] VITALS: BP 104/57; PULSE 74; RESP 16; TEMP 36.6; O2SAT 98
--- NOTE | 2025-05-08 09:39 | P.PNPSI_ITS ---
Subjective Subjective Date of Service: 05/08/25 Reason For Visit: Psychosis/paranoid Mental Status Exam Mental Status Exam Narrative: Pt is alert and oriented; behavior is much more alert and engaged, organized; cooperative, friendly and calm; patient is not in distress; dressed in hospital attire with unkempt hair but adequate hygiene; mood is described as good and affect congruent brighter, calm; eye contact appropriate; Speech is no longer with latency and normal rate, volume and prosody and not pressured; some lingering psychomotor retardation present; thought process is organized and goal directed; Thought content is on recent events, diagnosis, discharge; otherwise pertinent to relevant topics and without any delusional content, paranoid ideations or grandiosity; denies any SI/HI. Denies AVH and there is no evidence of perceptual disturbance. Patients insight and judgment appear intact. Diagnostics Vital Signs (24Hr): Vital Signs - 24 hr 05/07/25 20:00 Temperature 97.9 F Pulse Rate 74 Respiratory Rate 16 Blood Pressure 104/57 L Pulse Oximetry 98 Oxygen Delivery Method Room Air BMI result Body Mass Index 36.7 Medications Medications Current Medications Acetaminophen (Acetaminophen 325 Mg Tablet) 650 mg PO Q6H PRN PRN Reason: Headache/Pain, Scale 1-10 Al Hydroxide/Mg Hydroxide (Magnesium Hydrox/Alum Hydrox 30 Ml Oral.Susp) 30 ml PO Q6H PRN PRN Reason: Heartburn/Nausea Buprenorphine/Naloxone (Buprenorphine/Naloxone 2/0.5mg Film) 0.5 film SUBLINGUAL DAILY DIONISIO Last Admin: 05/07/25 14:03 Dose: 0.5 film Clonazepam (Clonazepam 0.5 Mg Tablet) 0.5 mg PO QID PRN PRN Reason: moderate anxiety Hydroxyzine HCl (Hydroxyzine Hcl 25 Mg Tablet) 25 mg PO Q6H PRN PRN Reason: mild anxiety Magnesium Hydroxide (Milk Of Magnesia 30 Ml Oral.Susp) 30 ml PO DAILY PRN PRN Reason: Constipation Nicotine (Nicotine 21 Mg Patch.Td24) 21 mg TRANSDERMA DAILY PRN PRN Reason: nicotine craving Nicotine Polacrilex (Nicotine Polacrilex 2 Mg Gum) 2 mg BUCCAL Q2H PRN PRN Reason: Nicotine Cravings Last Admin: 05/07/25 20:57 Dose: 2 mg Olanzapine (Olanzapine 5 Mg Tablet) 5 mg PO BID PRN PRN Reason: agitation Last Admin: 05/06/25 20:24 Dose: 5 mg Thiamine HCl (Thiamine Hcl 100 Mg Tablet) 100 mg PO DAILY DIONISIO Last Admin: 05/07/25 08:41 Dose: 100 mg Trazodone HCl (Trazodone Hcl 50 Mg Tablet) 50 mg PO BEDTIME MRX1 PRN PRN Reason: Insomnia Allergies Allergies Allergy/AdvReac Type Severity Reaction Status Date / Time No Known Allergies Allergy Verified 05/06/25 18:13 Assessment & Plan Assessment & Plan (1) Brief psychotic disorder: Status: Acute Code(s): F23 - Brief psychotic disorder (2) Opioid use disorder: Status: Acute Code(s): F11.90 - Opioid use, unspecified, uncomplicated Plan HPI: Patient is a 25-year-old male with psychotic episode in 2017, opiate addiction in sustained remission who presents for psychotic symptoms. Patient reports that he is here because I was hearing shit..voices... and a little bit of moaning....later got into my car and heard noise again.. I thought someone might be in my car... He says he pulled over to call for help in the police brought him to the hospital. Patient denies auditory hallucinations now. Tipple Engineer referenced collateral information from his father and he agreed that he was having some worries that people might be after him in this has impaired his functioning in the community but he is not sure who and thinks maybe it is not true. Patient endorses little sleep for the past 2-3 days, saying he did not want to go to bed, partly because he was paranoid about being safe; however he denies any associated manic symptoms. Patient denies any drug or alcohol use. Collateral reports that patient has been paranoid increasingly over the past month which has impaired his functioning at home in the community Formulation/clinical reasoning: Seems that patient has been having psychotic symptoms for few weeks, that the increased this past week. Patient is somewhat limited historian acknowledges that he feels a little confused and not quite himself. Patient had a psychotic episode for few months about 7 years ago after he took ecstasy but denies any other symptoms until now. Although AH is reportedly gone, patient does feel confused not himself. He hopes this will resolve on its own and does not want medications at this time. He gives permission to call his parents for collateral. -will diagnose with brief psychotic episode at this time but will be mindful of burgeoning schizophreniform Denies any drug or alcohol use and has been sober since 2022. Patient does use Suboxone, 1 mg a day which he buys on the street and says psychologically it helps him to remain sober; he also buys Adderall XL 30 mg which he used to be prescribed until 2020 and he lost his prescriber; and about 1-2 mg a day of Xanax and about 2 mg a day of clonazepam. Patient is very careful about whom he buys from, accompanying the person to the pharmacy and buying the pills directly after they were received. Patient denies abusing any these medications Plan: Twelve B Will continue patient on Suboxone 1 mg daily Will make available clonazepam 0.5 mg q.i.d. may need to be increase since patient takes more benzos on the street as needed Will hold off restarting Adderall so as not to aggravate psychotic symptoms Patient does not want to start antipsychotic medication at this time Will gather collateral Time Spent With Patient Time: Total time managing care of this patient today ____ minutes.
[2025-05-08] MEDS: Buprenorphine/Naloxone 2/0.5mg FILM 0.5 FILM SUBLINGUAL (10:41)
[2025-05-08 20:00] VITALS: BP 119/56; PULSE 76; RESP 16; TEMP 36.8; O2SAT 98
[2025-05-09 08:00] VITALS: BP 120/60; PULSE 72; RESP 16; TEMP 36.6; O2SAT 97
--- NOTE | 2025-05-09 08:35 | PC.NURSE ---
late entry 05/08/25 1000. Suboxone dosing was late. This nurse asked for clarification of the suboxone dose as it requires cutting the film in half. Per MD this is fine and per pharmacy this is fine as well. Medication was witnessed and split in two and half was given to the patient.
[2025-05-09] MEDS: Buprenorphine/Naloxone 2/0.5mg FILM 0.5 FILM SUBLINGUAL (09:04)
--- NOTE | 2025-05-09 09:16 | P.DS_ITS ---
DS: Providers Provider Date of Service: 05/09/25 Date of admission: 05/06/25 17:59 Date of discharge: 05/09/25 Primary care physician: None Physician Attending physician on admission: Jeremie Ruiz Consults: 05/06/25 18:19 Consult to Hospitalist Routine Comment: Consulting Provider: [facility] Reason For Exam: New external admit for H+P Attending physician on discharge: Jeremie Ruiz DS: Diagnosis Discharge Diagnosis (1) Brief psychotic disorder: Status: Acute (2) Opioid use disorder: Status: Acute DS: Medications Discharge Medications Home Medications: Home Medications ?Medication ?Instructions ?Recorded ?Confirmed buprenorphine 2 mg-naloxone 0.5 mg 1 film buccal DAILY 05/08/25 05/08/25 sublingual film DS: Summary Time Spent with Patient Time attestation: Total time managing care of this patient today ____ minutes. Discharge Plan Discharge Anticipated Discharge Date/Time: 05/09/25 11:00 Patient Disposition: Home, Self-Care Discharge Diagnosis: Brief psychotic disorder Referrals: Clinical and Support Options: [facility] [Other] - 1 Week Referral Note: Patient may self present to [facility] program for diagnostic evaluation to establish with therapy and psychiatric medication management services. Monday, Monday, Monday, , Monday from 8:00 AM from 8:00 PM for ALL age group(s) We serve ages 5+ Monday, Monday from 9:00 AM from 5:00 PM for ALL age group(s) We serve ages 5+ Physician,None [Primary Care Provider, Medical] - 1 Week Discharge Medications: Continued buprenorphine-naloxone 2-0.5 mg Film 1 film BUCCAL DAILY Rx Instructions: place 1 strip/tab under (each) side of tongue Discharge Orders: Discharge Order (Routine); Ordered 05/09/25 Ordered By: Jeremie Ruiz Diet: Regular diet Activity on Discharge: As tolerated Stand Alone Forms: Patient Portal Discharge page Print Language: Hungarian Care Plan Goals: Maintain mood and safe behaviors Take medications as prescribed Continue to pursue sobriety Practice coping skills Continue with outpatient providers and reach out to them as needed Health Concerns: Mood stability and behaviors Plan of Treatment: That are engaging with psychiatric provider and other outpatient providers regarding above concerns Assessment: Risk assessment at time of discharge:? Patient was interviewed prior to discharge and found to be fully oriented and without any SI or HI. Patient has improved insight and judgment. Patient is not in imminent risk of harm to self or others and has a safety plan that includes presenting to the closest ER or calling 911 if feeling unsafe.? Patient has been observed closely by nursing and unit staff throughout admission; patient has not engaged in any behaviors that suggest dangerousness to self or others and has demonstrated appropriate behaviors and impulse control
== END 2025-05-09 12:00 | disposition home or self-care (01) | DRG 885 ==
PROVIDERS: Admitting Provider Psychiatry & Neurology Psychiatry; Visit Provider Psychiatry & Neurology Psychiatry
DX: F23 Brief psychotic disorder (principal); F11.20 Opioid dependence, uncomplicated; F43.10 Post-traumatic stress disorder, unspecified

== ENCOUNTER → 2025-05-06 17:59 | Outpatient (BNV) | payer SELFPAY | PROVIDERS: Admitting Provider Psychiatry & Neurology Psychiatry; Visit Provider Psychiatry & Neurology Psychiatry | DX: F23 Brief psychotic disorder (principal); F11.90 Opioid use, unspecified, uncomplicated | CPT/HCPCS: 90792 ==

== ENCOUNTER → 2025-05-06 17:59 | Outpatient (BNV) | payer SELFPAY | PROVIDERS: Admitting Provider Psychiatry & Neurology Psychiatry; Visit Provider Nurse Practitioner Family | DX: R44.0 Auditory hallucinations (principal) | CPT/HCPCS: 99221 ==